=== PATIENT | male | born 2005 | race American Indian/Alaskan Native ===

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

== ENCOUNTER 2025-08-02 17:39 | Emergency (ER) | payer SELFPAY ==
[2025-08-02] MEDS ORDERED: Sodium Chloride 0.9% 10 ML Syringe FLUSH PRN (17:55)
[2025-08-02] MEDS: Dexamethasone 4 MG/ML SDV IVPUSH ONE (18:12)
== END 2025-08-02 18:21 | disposition home or self-care (01) ==
LOC: DL.ED 17:39
DX: J02.9 Acute pharyngitis, unspecified (principal)
CPT/HCPCS: 87081; 87430; 96374; 96375; 99283; J0696; J1100